=== PATIENT | male | born 1960 | race Caucasian/White ===

== ENCOUNTER 2024-06-25 15:50 | Inpatient (IN) | payer OTHER, MEDICARE, SELFPAY ==
[2024-06-25] VITALS (27 sets, daily range): BP systolic 117–182; BP diastolic 77–116; BMI 28.0
[2024-06-25 12:05] LABS: % Basophils 0.5 % (0-2); % Eosinophils 0.3 % (0-6); % Immature Granulocytes 0.3 % (0-0.5); % Lymphocytes 15.8 % (20.5-51.1); % Monocytes 9.9 % (1.7-9.3); % Neutrophils 73.2 % (42.2-75.2); Absolute Basophils 0.1 10^3/uL (0-0.2); Absolute Immature Granulocytes 0.1 10^3/uL (0-0.05); Absolute Lymphocytes 2.3 10^3/uL (1.2-3.4); Absolute Monocytes 1.4 10^3/uL (0.1-0.6); Absolute Neutrophils 10.7 10^3/uL (1.4-6.5); Hematocrit 43.6 % (39.0-52.0); Hemoglobin 15.6 g/dL (13.0-18.0); Mean Corp Hgb Conc. 35.8 g/dL (33.0-37.0); Mean Corpuscular Hgb 32.2 pg (27.0-31.0); Mean Corpuscular Volume 89.9 fL (80.0-94.0); Mean Platelet Volume 10.4 fL (7.4-10.4); Nucleated Red Blood Cells % 0 % (-); Platelet Count 220 10^3/uL (130-400); Red Blood Cell Count 4.85 10^6/uL (4.70-6.10); Red Cell Dist. Width 11.9 % (11.5-14.5); White Blood Cell Count 14.6 10^3/uL (4.8-10.8)
--- NOTE | 2024-06-25 12:09 | ED.GENMED ---
History of Present Illness
General
Chief Complaint: Cardiac Symptoms
Source: patient and spouse
Exam Limitations: none
Time Seen by Provider: 06/25/24 11:54
History of Present Illness
History of Present Illness:
63-year-old male complaining of dull mid chest pain. Started at 2 AM. Has been relatively constant since then. No pleuritic pain. At times mild radiation to the upper back. However no shearing pain. No history of same.
Past History
Past History
ED Past Medical History: Asthma, HTN and Hypercholesterolemia; Negative NIDDM
ED Past Surgical History: Tonsilectomy and Other (Rhinoplasty)
Social History
Tobacco: Smoker
Alcohol: Occasional
Personal:
Living: with family
Phy Exam
Physical Exam
Physical Exam:
GENERAL: Alert and oriented in no apparent distress
EYE: Orbits normal.
NECK: Supple
CARDIAC: Regular rate and rhythm without any obvious murmurs.
LUNGS: Clear breath sounds,normal
ABDOMEN: Soft, without focal tenderness or distention
NEUROLOGICAL: Alert and oriented , grossly non-focal
SKIN: Warm and dry, no rash or lesion, no discoloration, skin intact.
MUSCULOSKELETAL: No edema,no deformity.Good color
PSYCH: Normal and appropriate interaction.
Course
Orders/Labs/Results
Orders:
Orders
06/25/24 Lunch
NPO
Allow oral meds: Yes
Allow clear liquids: No
06/25/24 11:42
Electrocardiogram (*1) Urgent
Reason for Study: Chest Pain
EKG- Treatment ONCE
06/25/24 11:58
Complete Blood Count/With Diff Urgent
Comprehensive Metabolic Panel Urgent
PTT Urgent
Troponin I Urgent
06/25/24 12:01
Cardiac Monitoring- Treatment ONCE
IV Insert/Care/Rem.- Treatment PRN
Aspirin Chewable [Low Strength Aspirin] 324 mg PO NOW STA
Nitroglycerin 100 mg/250 ml [Nitroglycerin Premix] 100 mg in 250 ml IV NOW
Initial dose in mcg/min, then titrate:: 5
Titrate to keep:: Chest Pain Free
Titrate by mcg/min:: 5 mcg/min, may increase by 10 mcg/min if dose > 20 mcg/min
Frequency of titrations (minutes):: every 3-5 minutes
Maximum dose in mcg/min:: 200
Begin to taper infusion when:: Remained at goal for 2hrs
Taper by mcg/min:: 5 mcg/min
Frequency of taper (minutes) if patient maintains goal:: 30
Taper to off?: Yes
If infusion off & no longer maintaining goal:: Contact Provider
Nitroglycerin Sublingual [Nitrostat (Sublingual)] 0.4 mg SL [id number] PRN
CR Chest Portable - 1 View Urgent
Comment:
Reason For Exam: cp
Reason Study Needs to be Portable: Unable to Transport
Pulse Ox/cont/shift [RESP] Stat
Quantity: 1
06/25/24 12:[address] Non Medication Order As Directed
Physician Order: PTT 6 hours after initial start of Heparin infusion
06/25/24 12:12
Heparin 4,000 units IV NOW STA
Nursing to Place Non Medication Order As Directed
Physician Order: PTT 6 hours after initial start of Heparin infusion
06/25/24 12:15
Heparin 88583 Units/250 ml 25,000 units in 250 ml IV PER PROTOCOL
Weight to be used for heparin protocol in kilograms (kg):: 90.9
Protocol:: Cardiac Tx/Acute Coronary
PTT Goal Range to be used:: PTT 73 to 111 seconds
Order type:: Initial
INITIAL Infusion Dose (UNITS/KG/hr) & then follow protocol:: 12 units/kg/hr
Infusion Dose in UNITS/hr & then follow protocol (UNITS/hr):: 1,000
INFUSION RATE in mL/hr & then follow protocol (mL/hr):: 10
PTT less than or equal to 64 seconds:: Increase rate by 200 units/hr (+ 2 mL/hr)
PTT 64.1 to 72.9 seconds:: Increase rate by 100 units/hr (+ 1 mL/hr)
PTT 73 to 111 seconds:: Target Range. No change in rate.
PTT 111.1 to 130.9 seconds:: Decrease rate by 100 units/hr (- 1 mL/hr)
PTT 131 to 199.9 seconds:: HOLD for 1 hr. Then decrease rate by 200 units/hr (- 2 mL/hr)
PTT greater than or equal to 200 seconds:: HOLD for 2 hrs & Notify Provider. Then decrease by 200 units/hr (-
2 mL/hr)
Lab follow-up:: Each change, PTT q6h until 2 consecutive are therapeutic. Then PTT
daily.
06/25/24 12:55
Level of Care Change As Directed
Level of Care: Inpatient admission
Diagnosis: NSTEMI
Reason for Hospitalization: NSTEMI, IVU level of care
Expected length of stay greater than two midnights?: Yes
ELOS- Estimated Length of Stay in days: 3
I certify the patient meets the requirements for IP care: Yes
Code Status As Directed
Resuscitation Status: Full Code
Venous Foot Pumps As Directed
Location: Bilateral feet
06/25/24 12:56
Glycohemoglobin (HgbA1c) Routine
Activity As Directed
Activity Level: Bedrest
INT (Intravenous Needle Therapy) As Directed
Comment: maintain peripheral IV access
Intake/ Output As Directed
Frequency: q12h
Vital Signs As Directed
Frequency: q4h
Weight As Directed
Frequency: Daily
DX Deep Vein Thrombosis Video Routine
06/25/24 12:57
Echo 2D MMode Color/Doppler Routine
Reason for Study: chest pain
Heparin Protocol- PTT Orders As Directed
PTT per Heparin protocol: -Obtain CBC and baseline PTT - if not already collected.
-Obtain PTT 6 hours from start of infusion. Then, every 6 hours until 2 consecutive
PTT's are therapeutic. Then, PTT Daily.
-With each rate change, obtain PTT every 6 hours until 2 consecutive PTT's are
therapeutic. Then, PTT Daily.
Notify MD As Directed
Notify physician if: PTT is greater than or equal to 200.
06/25/24 13:00
Electrocardiogram (*1) Q6H
Reason for Study: Chest Pain
Comment: at admission and Q3H for total of 3, to be done with each troponin
Troponin I Q3H
Comment: at admit & Q3H for 3 total including ED draws, obtain ECG with each level
06/25/24 13:04
EKG [Electrocardiogram (*1)] Stat
Reason for Study: Chest Pain
EKG- Treatment ONCE
06/25/24 13:17
Ticagrelor [Brilinta] 90 mg .ROUTE .STK-MED ONE
06/25/24 13:18
Ticagrelor [Brilinta] 180 mg PO ONCE ONE
06/25/24 13:21
Ticagrelor [Brilinta] 90 mg .ROUTE .STK-MED ONE
06/25/24 13:49
Fentanyl Citrate/Pf [Sublimaze] 100 mcg .ROUTE .STK-MED ONE
Heparin 10,000 units .ROUTE .STK-MED ONE
Heparin 1000 Units/500 ml [Heparin] 1,000 units in 500 ml .ROUTE .STK-MED
Midazolam HCl [Versed] 2 mg .ROUTE .STK-MED ONE
Verapamil Injectable [Isoptin/Verapamil Injection] 5 mg .ROUTE .STK-MED ONE
06/25/24 13:50
Heparin Sodium,Porcine/Ns/Pf [Heparin 2000 Units/1000 ml] 2,000 unit in 1,000 ml .ROUTE .STK-MED
Lidocaine HCl/Pf [Xylocaine-Mpf 1% Vial] 50 mg .ROUTE .STK-MED ONE
Nitroglycerin [Tridil] 1,500 mcg .ROUTE .STK-MED ONE
06/25/24 16:00
Troponin I Q3H
Comment: at admit & Q3H for 3 total including ED draws, obtain ECG with each level
06/25/24 18:00
Atorvastatin [Lipitor] 80 mg PO QPM
06/25/24 19:00
Electrocardiogram (*1) Q6H
Reason for Study: Chest Pain
Comment: at admission and Q3H for total of 3, to be done with each troponin
Troponin I Q3H
Comment: at admit & Q3H for 3 total including ED draws, obtain ECG with each level
06/26/24 01:00
Electrocardiogram (*1) Q6H
Reason for Study: Chest Pain
Comment: at admission and Q3H for total of 3, to be done with each troponin
06/26/24 06:00
Cardiovascular Evaluation IN AM
06/26/24 08:00
Aspirin Chewable [Low Strength Aspirin] 81 mg PO DAILY
06/27/24 06:00
Complete Blood Count/No Diff Q2D
Comment: notify provider: Platelet count < 130,000 or decrease by 50% from baseline
06/29/24 06:00
Complete Blood Count/No Diff Q2D
Comment: notify provider: Platelet count < 130,000 or decrease by 50% from baseline
07/01/24 06:00
Complete Blood Count/No Diff Q2D
Comment: notify provider: Platelet count < 130,000 or decrease by 50% from baseline
07/03/24 06:00
Complete Blood Count/No Diff Q2D
Comment: notify provider: Platelet count < 130,000 or decrease by 50% from baseline
07/05/24 06:00
Complete Blood Count/No Diff Q2D
Comment: notify provider: Platelet count < 130,000 or decrease by 50% from baseline
07/07/24 06:00
Complete Blood Count/No Diff Q2D
Comment: notify provider: Platelet count < 130,000 or decrease by 50% from baseline
07/09/24 06:00
Complete Blood Count/No Diff Q2D
Comment: notify provider: Platelet count < 130,000 or decrease by 50% from baseline
07/11/24 06:00
Complete Blood Count/No Diff Q2D
Comment: notify provider: Platelet count < 130,000 or decrease by 50% from baseline
Abnormal Lab Results
06/25/24
11:58
WBC 14.6 H 10^3/uL
(4.8-10.8)
MCH 32.2 H pg
(27.0-31.0)
Abs Immat Gran (auto) 0.1 H 10^3/uL
(0-0.05)
Absolute Neuts (auto) 10.7 H 10^3/uL
(1.4-6.5)
Absolute Monos (auto) 1.4 H 10^3/uL
(0.1-0.6)
Lymphocytes % 15.8 L %
(20.5-51.1)
Monocytes % 9.9 H %
(1.7-9.3)
Glucose 147 H mg/dl
(70-99)
Calcium 10.3 H mg/dl
(8.4-10.2)
AST 268 H U/L
(17-59)
ALT 55 H U/L
(0-50)
Troponin I 24.700 H* ng/ml
06/25/24 11:58
06/25/24 11:58
Vital Signs
Initial and Last Documented VS:
Initial Vital Signs
Temp Pulse Resp BP Pulse Ox
98.1 F 98 20 182/116 99
06/25/24 11:39 06/25/24 11:39 06/25/24 11:39 06/25/24 11:39 06/25/24 11:39
Last Documented Vital Signs
Temp Pulse Resp BP Pulse Ox
98.1 F 87 22 137/86 93
06/25/24 11:39 06/25/24 13:45 06/25/24 13:45 06/25/24 13:40 06/25/24 13:35
*Pulse Oximetry
Patient hypoxic: no
*EKG
Interpreted by ED Provider?: Yes
Interpretation: abnormal
Comparison EKG: changes noted
Heart Rate: 83
Rate: normal
Rhythm: sinus
[place]: normal axis
Interval: normal interval
QRS Pattern: normal QRS
Ischemia: T-wave inversion (Anterior lateral. Greatest in leads V2 3 and 4)
*Critical Care Note
Total Time (30-74mins, 75-104mins- exclusive of procedures): 35
Data Reviewed
Review of Other/Old Records Reveals: Labs, Records and Testing
Update Note
Update Note:
EKG was shown to me. Patient brought back immediately. Clear ST changes and T wave inversions anterior lateral. Currently having mild discomfort although nontoxic. EKGs were sent to cardiology and invasive cardiology. Aspirin heparin nitro.
Patient was rechecked multiple times. Remained clinically stable. Still ongoing vague chest discomfort. Repeat EKG essentially unchanged discussed with cardiology and invasive cardiology. Given ongoing symptoms, troponin of 24, patient will be
taken to the Pedic[facility] Driver as a non-STEMI MO
ED Attending Note
-
Portions of this chart may have been created with voice recognition software.� Occasional wrong word or��sound alike� substitutions may have occurred due to the inherent limitations of voice recognition software.
Discharge Plan
Departure
Patient Disposition: Admit
Date of Disposition: 06/25/24
Time of Disposition: 14:08
Presentation/result/management discussed w/ accepting MD/DO: Cardiology/invasive cardi
Discharge Problem:
Acute non-STEMI MO
Prescriptions:
No Action
atorvastatin [Lipitor] 40 mg Tablet
40 mg PO DAILY
calcium carbonate [Tums] 200 mg calcium (500 mg) Tablet,Chewable
200 mg PO TIDPRN PRN (Reason: gerd)
ibuprofen [Advil] 200 mg Tablet
200 mg PO BIDPRN PRN (Reason: mild pain)
losartan 100 mg Tablet
100 mg PO DAILY
Centrum MultiGummies 80 mcg Tablet,Chewable
1 tab PO DAILY
Referrals:
Dick Wong MD [Family Provider] -
Interventions
Interventions:
*Risk Screen - Suicide Last Done: 06/25/24 11:39
*General Assessment Last Done: 06/25/24 11:39
*Neglect/Abuse Screening Last Done: 06/25/24 11:39
*ED COVID-19 Vaccine History Last Done: 06/25/24 12:24
ED- Pulmonary Assessment Last Done: 06/25/24 13:12
ED- Cardiac Assessment Last Done: 06/25/24 12:26
Discharge Date and Time
Print Language: [place] CITIZ[place]
[2024-06-25] MEDS: LOW STRENGTH ASPIRIN 324 MG PO (12:13)
[2024-06-25] MEDS: NITROGLYCERIN PREMIX 250 IV (12:16)
[2024-06-25 12:17] LABS: ALT (SGPT) 55 U/L (0-50); AST (SGOT) 268 U/L (17-59); Albumin 4.4 g/dl (3.5-5.0); Alkaline Phosphatase 78 U/L (38-126); Blood Urea Nitrogen 18 mg/dl (9-20); Calcium 10.3 mg/dl (8.4-10.2); Carbon Dioxide 27 mmol/L (22-30); Chloride 105 mmol/L (98-107); Estimated Creatinine Clearance 71 ml/min; Glucose 147 mg/dl (70-99); Potassium 3.8 mmol/L (3.5-5.1); Sodium 138 mmol/L (135-145); Total Protein 7.2 g/dl (6.3-8.2); eGFR > 60.00
[2024-06-25 12:18] LABS: APTT 28.5 Sec (23.4-35.0)
[2024-06-25] MEDS: HEPARIN 4000 UNITS IV (12:42)
[2024-06-25] MEDS: HEPARIN 25000 UNITS/250 ML IV (12:45)
[2024-06-25] MEDS: NITROSTAT (SUBLINGUAL) 0.4 MG SL ×3 (12:49→13:07)
[2024-06-25] MEDS: BRILINTA 180 MG PO (13:22)
--- NOTE | 2024-06-25 13:55 | CON.CAR ---
Consultation
Consultation Request
Date/Time Consultation Requested: Jun 25 PM
Date/Time Consultation Performed: Jun 25 pm
Requesting Provider: ER
Performing Provider: Gage Field
Reason for Consultation: chest pain
Medical History
-
Chief Complaint: Chest pain
History of Present Illness:
63-year-old male with past medical history of hypertension hyperlipidemia and chronic smoker with daily alcohol who is here for evaluation of chest pain. He tells me that initially he had minor chest discomfort a few days ago. However, early this
morning he awoke with chest tightness with radiation to his shoulders and some mild associated shortness of breath that did not go away. He was unable to fall back asleep. Because of the intensity and unable for it to go away he decided to present
to the emergency room; in the emergency room he had anterolateral T wave inversions concerning for possible ischemia and initial troponin was elevated. He received nitro x 3 with inability to relieve symptoms and after discussion with
interventional cardiology the Senior Analyst Programmer was activated.
Past Medical History
Past Medical History: HTN and Hypercholesterolemia
Past Surgical History: None
Social History
Tobacco: Smoker
Alcohol: Daily
Drug: None
Personal:
Living: With Family
Employment: Employed
Family History
Family History: Other (father AL and CABG in 60s)
Allergies / Home Medications
Allergy/AdvReac Type Severity Reaction Status Date / Time
No Known Allergies Allergy Verified 06/25/24 11:39
�Medication �Instructions �Recorded �Confirmed �Type
atorvastatin 40 mg tablet (Lipitor) 40 mg PO DAILY 06/25/24 06/25/24 History
calcium carbonate (Tums) 200 mg PO TIDPRN PRN gerd 06/25/24 06/25/24 History
ibuprofen 200 mg tablet (Advil) 200 mg PO BIDPRN PRN mild pain 06/25/24 06/25/24 History
losartan 100 mg tablet 100 mg PO DAILY 06/25/24 06/25/24 History
multivitamin with minerals-folic 1 tab PO DAILY 06/25/24 06/25/24 History
acid 80 mcg chewable tablet
Review of Systems
-
All other systems: Negative unless noted
Physical Exam
Vital Signs
Temp Pulse Resp BP Pulse Ox
98.1 F 87 21 118/89 93
06/25/24 11:39 06/25/24 13:05 06/25/24 13:05 06/25/24 13:07 06/25/24 13:12
Lab Results
06/25/24 11:58
06/25/24 11:58
Troponin I 24.700 ng/ml H* 06/25/24 11:58
Physical Exam
General: Well Developed, Well Nourished and No Apparent Distress
HEENT: Normocephalic and Anicteric
Respiratory: Clear and Non Labored Respirations
Cardiac: S1/S2 and Regular Rhythm
GI: Soft and Normal Bowel Sounds
Musculoskeletal: No Clubbing, No Cyanosis and No Edema
Skin: Warm and Dry
Neuro: AO x 3
Hematologic/Lymphatic: No Lymphadenopathy
Psych: Calm
Impression / Plan
-
63-year-old male with past medical history of hypertension hyperlipidemia and chronic smoker with daily alcohol who is here for evaluation of chest pain, found to have an NSTEMI.
NSTEMI
- aspirin and ticagrelor given
-Increase atorvastatin to 80 mg daily lipid panel pending hemoglobin A1c pending
-Echocardiogram
-Start low-dose beta-mauro carvedilol 3.125 twice daily
-Senior Analyst Programmer
Hypertension
-Continue losartan start Coreg 3.125 mg twice daily
Smoker
-Cessation starting today
Alcohol use
- will monitor for symptoms of w/drawal
Data Reviewed
-
EKG: Tracing Personally Visualized and interpreted (sr ischemic st changes )
Medical Tests (Nuc Med, Echo etc): Image Personally Visualized and interpreted
Labs: Labs Reviewed by me
[2024-06-25 14:13] LABS: ACT-LR - POC 252 Seconds (116-155)
[2024-06-25 14:24] LABS: ACT-LR - POC 115 Seconds (116-155)
[2024-06-25 14:30] LABS: ACT-LR - POC 261 Seconds (116-155)
[2024-06-25 14:43] LABS: ACT-LR - POC 276 Seconds (116-155)
--- NOTE | 2024-06-25 15:57 | ITS.CL.CATH ---
Popcorn Attendant - Catheterization
Cardiac Catheterization
Procedure Report:
CARDIAC CATHETERIZATION REPORT
Date of Procedure: 06/25/2024
Referring: Gage Field MD
Indication: Evolving non-STEMI with ongoing chest pain despite medical therapy
�
HEMODYNAMIC DATA
AO: 138/71
LV: 138/30
�
LEFT VENTRICULOGRAPHY: Severe anterolateral hypokinesis with apical akinesis to dyskinesis. The EF is 28%
�
CORONARY ANGIOGRAPHY
Dominance: Right
Left Main: Normal
LAD: The proximal and mid LAD are severely calcified. There are tandem 99% and 90% mid LAD stenoses with very sluggish ABIOLA grade II flow distal to the lesions. A large D1 has 90% proximal (not ostial) stenosis.
Circumflex: The circumflex gives rise to small OM1 and OM 2 branches. OM 3 is large with 20% proximal stenosis. There is 60-70% mid circumflex stenosis just past the takeoff of OM 3. OM 4 is a moderate-sized vessel. The circumflex extends into
the AV groove and provides collateral flow to the distal right posterolateral branch
RCA: The RCA is proximally occluded. There is [id number] collateral filling of the large second RPL, moderate-sized first RPL, and moderate-sized RPDA
Angioplasty: At the conclusion of the diagnostic study we proceeded with immediate intervention for evolving non-STEMI with very slow antegrade flow in the infarct-related artery (LAD). There was no option for medical stabilization then CABG due to
the very sluggish flow in the LAD. The aortic root was mildly enlarged and we were unable to engage the left coronary artery with EBU 3.75 , EBU 4 , and AL 2 guide catheters. With luck we were able to get an XB 4 into the left coronary artery and
it actually provided surprisingly good backup support for the duration of the procedure. A Hi-Torque floppy wire could not be passed through the 99% mid LAD stenosis and was removed. A hydrophilic whisper wire was successfully passed without much
of a fight into the distal LAD. We then placed a BMW wire into the large first diagonal branch with the plan to treat the 90% proximal stenosis in this vessel after fixing the infarct vessel. Heparin was used for anticoagulation. The patient had
been given ticagrelor 180 mg chewed in the ER as well as aspirin 324 mg. A 2.5 x 15 Euphora balloon was used to dilate both mid LAD lesions to 7 savannah. This restored ABIOLA grade III flow to the apical LAD. We then placed overlapping from distal to
proximal 3.0 x 18 and 3.0 x 12 Royer frontier BRIDGET to cover the tandem mid LAD lesions. Each stent was deployed at 15 savannah then postdilated with a 3.0 NC emerge to 17 savannah. The angiographic result was outstanding with yazdanism of ABIOLA grade III
flow to the apical LAD and no residual stenosis.
At this point we turned our attention to the 90% proximal stenosis in the large first diagonal branch of the LAD. Angioplasty with a 2.0 x 12 emerge balloon to 8 savannah was followed by placement of a 2.25 x 15 Royer frontier BRIDGET deployed at 14 savannah then
postdilated with a 2.25 NC Euphora to 17 savannah. The final angiographic result was outstanding with no residual stenosis. There were no procedural complications.
�
Closure Device: None-the procedure was performed via the right radial artery. The Hossein's test was normal prior to the procedure.
�
Radiation (mGy): 1476
DAP (cm2.Gy): 130.65
Fluoroscopy time: 20.8 minutes
�
CONCLUSIONS
1:�Evolving anterior non-STEMI of 10-12 hours duration with ongoing chest pain despite medical therapy
2:�Elevated LVEDP
3. Severe anterolateral hypokinesis with apical akinesis to dyskinesis and EF 28%
4. Triple-vessel CAD as described
5. Successful stenting of tandem 99% and 90% mid LAD lesions using overlapping 3.0 x 18 and 3.0 x 12 Royer drug-eluting stents
6. Successful stenting of 90% proximal first diagonal stenosis using 2.25 x 15 Royer drug-eluting stent
7. Recommend dual antiplatelet therapy for 12 months. We will treat with beta-mauro and LUISA inhibitor due to left ventricular dysfunction. Atorvastatin to achieve LDL less than 70 and ideally less than 55.
8. Smoking cessation absolutely mandatory if he hopes to live a normal lifespan
9. Recommend evaluation of LVEF by echo in 3 months followed by ICD if EF remains less than 35%. I am optimistic that there will be significant recovery in his anterior wall motion
�
�
Copy to: Gage Field MD
�
Perez Arteaga MD, FAC, [facility]
[2024-06-25] MEDS: NSS 1000 IV (17:46)
[2024-06-25] MEDS: KCL 20 MEQ PO (17:47)
[2024-06-25] MEDS: LIPITOR 80 MG PO (17:47)
[2024-06-25] MEDS: COREG 3.125 MG PO (19:34)
[2024-06-25] MEDS: MAALOX 30 ML PO (19:35)
--- NOTE | 2024-06-25 23:12 | PTCARENOTE ---
received patient at the change of shift. AAOx3. at this bedside. resting comfortably, denies any cp/sob. notable mild dyspnea on exertion. patient states having HAWKINS at times due to 'a dry nose'-baseline per patient. SR 70s. bp stable. radial
band removed with no issues. Right wrist ecchymotic; no hematoma noted. + radial pulse. gauze/teg applied. reviewed activity restrictions-verbalized understanding. educated patient to inform RN with any new changes overnight. ambulating to the
bathroom independently.
[2024-06-26 03:30] VITALS: BP 117/78
[2024-06-26 04:39] LABS: HDL Cholesterol 47 mg/dl; LDL Cholesterol, Calculated 96 mg/dl; Total Cholesterol 172 mg/dl (50-199); Triglyceride 147 mg/dl (10-149); Very Low Density Lipoprotein 29 mg/dl (0-30)
[2024-06-26 04:49] LABS: Blood Urea Nitrogen 15 mg/dl (9-20); Calcium 9.2 mg/dl (8.4-10.2); Carbon Dioxide 25 mmol/L (22-30); Chloride 106 mmol/L (98-107); Estimated Creatinine Clearance 71 ml/min; Glucose 101 mg/dl (70-99); Magnesium 1.4 mg/dl (1.6-2.3); Sodium 136 mmol/L (135-145); eGFR > 60.00
[2024-06-26] MEDS: MAGNESIUM SULFATE 50 IV (05:05)
--- NOTE | 2024-06-26 05:19 | PTCARENOTE ---
prolonged QT and QTc noted this morning. updated Freddy RANGEL PA. BMP and magnesium added to AM labs. k 4.0 and mag 1.4. 2 gram IV mag ordered and given-see jan.
no chest pain overnight. ambulating independently. R radial site intact.
[2024-06-26 06:00] VITALS: BMI 27.6
[2024-06-26 07:40] VITALS: BP 116/90
--- NOTE | 2024-06-26 07:55 | W.PN.CD ---
Today's Communication / Plan
-
Lisinopril 5 bid starting this AM
monitor
ECHO today
OK to shower this afternoon
Check cost of brilinta
Impression / Plan
-
63-year-old male with past medical history of hypertension hyperlipidemia and chronic smoker with daily alcohol who is here for evaluation of chest pain, found to have an NSTEMI.
NSTEMI
- Large UT with peak troponin 316 now falling
-Atorvastatin increased to 80mg. His LDL 96 on 40mg
-Echocardiogram today
-Coreg 3.125 bid and Lisinopril 5mg bid
- Check cost of brilinta
- He lives in [place]. Will need care down there
-Continue telemetry for at least 48 hrs longer given size of UT
- ECG c/w ASMI
Hypertension
-Continue losartan start Coreg 3.125 mg twice daily and have added lisinopril 5mg bid
Smoker
-Cessation starting today
Alcohol use
- will monitor for symptoms of w/drawal
-discussed need to decrease ETOH with pt and his yesterday
Physical Exam
Vital Signs/Labs
Vital Signs
Temp Pulse Resp BP Pulse Ox
98.7 F 72 18 117/78 98
06/26/24 07:36 06/26/24 04:30 06/26/24 07:36 06/26/24 03:30 06/26/24 07:36
06/25/24 06/26/24 06/27/24
06:59 06:59 06:59
Actual Weight 197 lb 8.547 oz
06/25/24 11:58
06/26/24 03:31
APTT 28.5 Sec (23.4-35.0) 06/25/24 11:58
Magnesium 1.4 mg/dl (1.6-2.3) L 06/26/24 03:31
Magnesium Cancelled 06/26/24 03:31
Triglycerides 147 mg/dl (10-149) 06/26/24 03:31
LDL Cholesterol, Calc 96 mg/dl 06/26/24 03:31
VLDL Cholesterol, Calc 29 mg/dl (0-30) 06/26/24 03:31
HDL Cholesterol 47 mg/dl 06/26/24 03:31
LAB Results
06/25/24 06/25/24 06/25/24
11:58 16:00 18:06
Troponin I 24.700 H* Cancelled 316.000 H* D
06/25/24 06/26/24
19:00 03:31
Troponin I Cancelled 73.300 H*
Physical Exam
Constitutional: No acute distress and Comfortable
EENT: Anicteric
Cardiovascular: Rhythm & rate is regular, S1S2 is normal and Murmur/rub/gallop absent
Respiratory: Respiratory effort normal, Lungs clear to auscul., Wheeze Absent and Crackles Absent
GI: Soft and Non tender
Neuro/Psych: AO x 3 and Motor deficits absent
Data Reviewed
-
Date of Service: June 26, 2024
[2024-06-26] MEDS: COREG 3.125 MG PO ×2 (08:04→20:35)
[2024-06-26] MEDS: ZESTRIL 5 MG PO ×2 (08:04→20:36)
[2024-06-26] MEDS: LOW STRENGTH ASPIRIN 81 MG PO (08:04)
[2024-06-26] MEDS: BRILINTA 90 MG PO ×2 (08:05→20:36)
[2024-06-26] MEDS: PROTONIX 40 MG PO (08:05)
[2024-06-26 09:01] LABS: Glycohemoglobin (HgbA1c) 5.4 % (4.0-5.6)
[2024-06-26 12:05] VITALS: BP 122/75
--- NOTE | 2024-06-26 13:02 | CM ---
Chart reviewed. Patient is here visiting his son, he lives with his in [place]. Patient is independent of ADLS, lives with his in a [address], 0 SCOTT, 0 DME. Plan is for the patient to return to his son's home and then return to his home in
[place] next weekend. CM to follow
--- NOTE | 2024-06-26 13:04 | CM ---
Pricing on medications through the patient's [facility], Brilinta is covered at $273.43 until the patient meets the deductible of $3400 in medications and hospitalization. After the patient will pay 20% of cost. Patient qualifies for the $5 copay
card. I did place that in the patient's red discharge folder.
Entresto needs a PA, it's a Tier 4 medication. PA # [phone]. I did place a free 30 day coupon and $10 copay card in the patient's discharge folder.
Farxiga needs a PA. Preferred medication is Jardiance and that is a $0 copay.
I reviewed with the patient.
--- NOTE | 2024-06-26 14:36 | PTCARENOTE ---
Patient with no complaints of pain or shortness of breath. NSR on telemetry, VSS, call nichols in reach
[2024-06-26 15:39] VITALS: BP 121/82
[2024-06-26] MEDS: LOVENOX 40 MG SC (17:38)
[2024-06-26] MEDS: LIPITOR 80 MG PO (17:38)
[2024-06-26 18:54] LABS: Hepatitis C Antibody Negative (Negative)
[2024-06-26 19:38] VITALS: BP 121/79
[2024-06-26 22:54] VITALS: BP 113/69
[2024-06-27] VITALS (7 sets, daily range): BP systolic 99–135; BP diastolic 62–88; BMI 27.8
--- NOTE | 2024-06-27 04:32 | PTCARENOTE ---
Pt denies chest pain or SOB. VSS. SB with lowest HR 47 on monitor.
[2024-06-27] MEDS: ZESTRIL 5 MG PO ×2 (08:03→19:26)
[2024-06-27] MEDS: BRILINTA 90 MG PO ×2 (08:03→19:26)
[2024-06-27] MEDS: LOW STRENGTH ASPIRIN 81 MG PO (08:03)
[2024-06-27] MEDS: PROTONIX 40 MG PO (08:03)
[2024-06-27] MEDS: COREG 3.125 MG PO ×2 (08:03→19:27)
[2024-06-27] MEDS: JARDIANCE 10 MG PO (10:07)
--- NOTE | 2024-06-27 11:08 | CM ---
Chart reviewed. Patient is independent of ADLS, lives with his in a [address], 0 SC[address], 0 DME in [place]. Patient is visiting his son and family. Plan is for the patient to go to his son's house when medically stable for discharge and then return
to [place]. CM to follow
[2024-06-27] MEDS: LIPITOR 80 MG PO (17:38)
[2024-06-27] MEDS: LOVENOX 40 MG SC (17:38)
--- NOTE | 2024-06-27 18:30 | W.PN.CD ---
Today's Communication / Plan
-
Increase activity
Continue current medical regimen
If he remains stable on telemetry home tomorrow
Impression / Plan
-
63-year-old male with past medical history of hypertension hyperlipidemia and chronic smoker with daily alcohol who is here for evaluation of chest pain, found to have an NSTEMI.
NSTEMI
- Large SC with peak troponin 316
-Telemetry has not shown any ventricular tachycardia and he remains clinically stable with no CHF
-Atorvastatin increased to 80mg. His LDL 96 on 40mg
-Echocardiogram 06/26 showed EF 30% with extensive anterior wall motion abnormalities consistent with large anterior infarction
-Coreg 3.125 bid and Lisinopril 5mg bid are being well-tolerated
-Continue DAPT x 12 months
- He lives in [place]. Will need care down there
-If he remains stable he should be good for discharge tomorrow
- ECG c/w ASMI
Hypertension
-Continue losartan start Coreg 3.125 mg twice daily and have added lisinopril 5mg bid
Smoker
-Cessation mandatory
Alcohol use
-No symptoms of w/drawal
-discussed need to decrease ETOH with pt and his yesterday
Patient has been told he will need cardiac care when he returns to [place] and will need an echocardiogram in 3 months to determine whether an ICD is needed. I have explained the situation to him carefully
Physical Exam
Vital Signs/Labs
Vital Signs
Temp Pulse Resp BP Pulse Ox
97.7 F 78 16 122/88 98
06/27/24 14:30 06/27/24 08:00 06/27/24 14:30 06/27/24 07:44 06/27/24 14:30
06/26/24 06/27/24 06/28/24
06:59 06:59 06:59
Actual Weight 197 lb 8.547 oz 199 lb 1.239 oz
06/25/24 11:58
06/26/24 03:31
APTT 28.5 Sec (23.4-35.0) 06/25/24 11:58
Magnesium 1.4 mg/dl (1.6-2.3) L 06/26/24 03:31
Magnesium Cancelled 06/26/24 03:31
Triglycerides 147 mg/dl (10-149) 06/26/24 03:31
LDL Cholesterol, Calc 96 mg/dl 06/26/24 03:31
VLDL Cholesterol, Calc 29 mg/dl (0-30) 06/26/24 03:31
HDL Cholesterol 47 mg/dl 06/26/24 03:31
LAB Results
06/25/24 06/25/24 06/25/24
11:58 16:00 18:06
Troponin I 24.700 H* Cancelled 316.000 H* D
06/25/24 06/26/24
19:00 03:31
Troponin I Cancelled 73.300 H*
Physical Exam
Constitutional: No acute distress and Comfortable
EENT: Anicteric
Cardiovascular: Rhythm & rate is regular and Murmur/rub/gallop absent
Respiratory: Respiratory effort normal, Lungs clear to auscul., Wheeze Absent and Rhonchi Absent
GI: Soft
Neuro/Psych: AO x 3 and Motor deficits absent
Data Reviewed
-
Date of Service: June 27, 2024
[2024-06-28 05:05] VITALS: BP 113/74
[2024-06-28 05:07] VITALS: BMI 27.4
[2024-06-28 07:19] VITALS: BP 129/77
[2024-06-28] MEDS: PROTONIX 40 MG PO (08:11)
[2024-06-28] MEDS: ZESTRIL 5 MG PO (08:11)
[2024-06-28] MEDS: JARDIANCE 10 MG PO (08:11)
[2024-06-28] MEDS: LOW STRENGTH ASPIRIN 81 MG PO (08:11)
[2024-06-28] MEDS: BRILINTA 90 MG PO (08:11)
[2024-06-28] MEDS: COREG 3.125 MG PO (08:11)
--- NOTE | 2024-06-28 09:33 | W.PN.CARDCBS ---
Addendum entered and electronically signed by AMARA Villarreal 06/28/24 16:31:
new Acute ischemic HFrEF and was initiated on GDMT, can consider adding Aldactone as an outpt
Addendum entered and electronically signed by Jonathan Blank MD 06/28/24 09:54:
63 yo male admitted with NSTEMI, ICM EF 30%. s/p PCI to LAD and D1 06/25. No chest pain. Exam with RRR, no murmurs, no edema. Tele: SB 50s, no arrhythmia. He will be discharged on current medical regimen including DAPT, coreg, lisinopril,
atorvastatin, jardiance. He will follow up with cardiology in [place], including 3 month follow up echo for ICD evaluation.
Original Note:
Today's Communication / Plan
-
stable for d/c home today
Impression / Plan
-
63-year-old male with past medical history of hypertension hyperlipidemia and chronic smoker with daily alcohol who is here for evaluation of chest pain, found to have an NSTEMI.
NSTEMI
- Large [place] with peak troponin 316
-Telemetry has not shown any ventricular tachycardia and he remains clinically stable with no CHF
-Atorvastatin increased to 80mg. His LDL 96 on 40mg
-Echocardiogram 06/26 showed EF 30% with extensive anterior wall motion abnormalities consistent with large anterior infarction
-Coreg 3.125 bid and Lisinopril 5mg bid are being well-tolerated
-Continue DAPT x 12 months
- He lives in [place]. Will need care down there
-Cardiac rehab c/s, will set up in [place] after cardiology f/u apt
- stable for d/c home today
New HFrEF - EF 30%, continue GDMT, added Jardiance
Hypertension
-Continue losartan start Coreg 3.125 mg twice daily and have added lisinopril 5mg bid
Smoker
-Cessation mandatory
Alcohol use
-No symptoms of w/drawal
-discussed need to decrease ETOH with pt and his yesterday
Patient has been told he will need cardiac care when he returns to [place] and will need an echocardiogram in 3 months to determine whether an ICD is needed.
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
Subjective
Date of Service: June 28, 2024
no cp,sob
Objective
Labs:
06/25/24 11:58
06/26/24 03:31
Labs
Hgb 15.6 g/dL (13.0-18.0) 06/25/24 11:58
Hct 43.6 % (39.0-52.0) 06/25/24 11:58
Plt Count 220 10^3/uL (130-400) 06/25/24 11:58
APTT 28.5 Sec (23.4-35.0) 06/25/24 11:58
Sodium 136 mmol/L (135-145) 06/26/24 03:31
Sodium Cancelled 06/26/24 03:31
Potassium 4.0 mmol/L (3.5-5.1) 06/26/24 03:31
Potassium Cancelled 06/26/24 03:31
BUN 15 mg/dl (9-20) 06/26/24 03:31
BUN Cancelled 06/26/24 03:31
Creatinine 1.1 mg/dL (0.7-1.3) 06/26/24 03:31
Creatinine Cancelled 06/26/24 03:31
Glucose 101 mg/dl (70-99) H 06/26/24 03:31
Glucose Cancelled 06/26/24 03:31
Troponins
06/25/24 06/25/24 06/25/24
11:58 16:00 18:06
Troponin I 24.700 H* Cancelled 316.000 H* D
06/25/24 06/26/24
19:00 03:31
Troponin I Cancelled 73.300 H*
Vital Signs and I&O:
Vital Signs
Temp Pulse Resp BP Pulse Ox
98.8 F 70 20 129/77 98
06/28/24 07:16 06/28/24 07:19 06/28/24 07:16 06/28/24 07:19 06/28/24 08:07
Vital Signs
Temp Pulse Resp BP Pulse Ox
98.8 F 70 20 129/77 98
06/28/24 07:16 06/28/24 07:19 06/28/24 07:16 06/28/24 07:19 06/28/24 08:07
Intake & Output
06/26/24 06/27/24 06/28/24 06/29/24
06:59 06:59 06:59 06:59
Intake Total 825 / 825 780 / 780
Output Total 350 / 350
Balance 475 / 475 780 / 780
Physical Exam
Physical Exam
NAD< AOX3
S1, S2, RRR
CTAB, non labored
SNTND bsx4
R Rad site c/d/i good pulse
--- NOTE | 2024-06-28 10:24 | W.DS.TRANS ---
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
-
Discharge Instructions:
Discharge Diagnosis/Procedures NSTEMI, Angioplasty with stent to LAD and
Diagonal arteries x 2 (06/25)
HFrEF
HTN
HLD
Diet 2 Gram Sodium,Restrict fluids to 48 oz,Low
Cholesterol
Activity No strenuous activity
Additional Activity for 4 weeks
Driving Restrictions No driving for 24 hours
Bathing Restrictions OK to Shower
Others Tests Echocardiogram in 3 months. This will be
ordered by your toll patrolman in [facility]
Other Services Cardiac Rehab
Specialty Instructions Weigh Daily
Instructions:
Stand-Alone Forms: DC Instructions- Cath/EP Lab
Changes to Home Medications: Yes
Discharge Medications:
DC Medications w/original date entered in [employer]
calcium carbonate (Tums) 200 mg PO TIDPRN PRN gerd 06/25/24
multivitamin with minerals-folic acid 80 mcg chewable tablet 1 tab PO DAILY Supplement 06/25/24
acetaminophen 325 mg tablet 650 mg (2 x 325 mg) PO Q4HPRN PRN mild pain #1 tab 06/26/24
aspirin 81 mg chewable tablet 81 mg PO DAILY #30 tabs 06/26/24
atorvastatin 80 mg tablet 80 mg PO QPM #30 tabs 06/26/24
ticagrelor 90 mg tablet (Brilinta) 90 mg PO BID #60 tabs 06/26/24
carvedilol 3.125 mg tablet 3.125 mg PO BID #180 tabs 06/28/24
empagliflozin 10 mg tablet (Jardiance) 10 mg PO DAILY #90 tabs 06/28/24
lisinopril 5 mg tablet 5 mg PO BID #180 tabs 06/28/24
nitroglycerin 0.4 mg sublingual tablet 0.4 mg sublingual [id number] PRN chest pain #25 tabs 06/28/24
Home Medication Changes
stop losartan, increase atorvastatin 40 to 80mg, new to nitro, lisinopril, carvedilol, ASA, Brilinta, Jardiance
Pending Results: No
--- NOTE | 2024-06-28 11:43 | PTCARENOTE ---
Pt chinmay by Kimberli Guzman NP and . Telemetry and IV device removed. Discharge instructions reviewed with pt and his regarding CHF guidelines, wound care, medications and their possible side effects, activity guidelines, reporting cares and
concerns and follow up appt's. Very good understanding verbalized. Pt has reports of all procedures here and will find a Marketer in [place]. Pt escorted out via wheelchair and discharged to home.
[2024-06-28 12:04] LABS: ACT-LR - POC > 397 Seconds (116-155)
[2024-06-28 12:04] LABS: ACT-LR - POC > 397 Seconds (116-155)
--- NOTE | 2024-06-28 15:57 | PN.CDI ---
CDI
- -
CDI:
Physician Documentation Request
Admit Date: 06/25/24 15:50
Dear Bita MALONEY,
Clinical Indicators:
Patient admitted with NSTEMI; s/p PCI to LAD and D1 06/25.
06/25 Cath Report, 'Elevated LVEDP'
06/27 PN, 'New HFrEF - EF 30%, continue GDMT, added Jardiance'
Please provide further specificity regarding th acuity of HFrEF you are evaluating, treating or monitoring.
Acute HFrEF
Other,please specify
Unable to determine
Use of terms such as suspected, likely, concern for, or probable (associated with a specific diagnosis that is being evaluated, monitored, or treated as if it exists) are acceptable and can be coded in the inpatient setting, when documented at the
time of discharge.
Thank you,
Selene Grant RN BSN
CDI Specialist
available via tiger text
Please use your independent medical judgment in providing your response.
== END 2024-06-28 11:35 | disposition home or self-care (01) | DRG 321 ==
LOC: IVU 15:50
PROVIDERS: Internal Medicine Cardiovascular Disease; ADMITTING PHYSICIAN Internal Medicine Cardiovascular Disease; EMERGENCY PHYSICIAN Emergency Medicine; FAMILY PHYSICIAN Family Medicine
PROC: 027136Z Dilation of Coronary Artery, Two Arteries with Three Drug-eluting Intraluminal Devices, Percutaneous Approach (ICD-10-PCS; 2024-06-25)
PROC: B215YZZ Fluoroscopy of Left Heart using Other Contrast (ICD-10-PCS; 2024-06-25)
PROC: B211YZZ Fluoroscopy of Multiple Coronary Arteries using Other Contrast (ICD-10-PCS; 2024-06-25)
PROC: 4A023N7 Measurement of Cardiac Sampling and Pressure, Left Heart, Percutaneous Approach (ICD-10-PCS; 2024-06-25)
DX: I21.4 Non-ST elevation (NSTEMI) myocardial infarction (principal); I50.21 Acute systolic (congestive) heart failure; I11.0 Hypertensive heart disease with heart failure; E78.00 Pure hypercholesterolemia, unspecified; F17.200 Nicotine dependence, unspecified, uncomplicated; I25.10 Atherosclerotic heart disease of native coronary artery without angina pectoris; K21.9 Gastro-esophageal reflux disease without esophagitis; J45.909 Unspecified asthma, uncomplicated; Z82.49 Family history of ischemic heart disease and other diseases of the circulatory system; Z79.899 Other long term (current) drug therapy
CPT/HCPCS: 80048; 80053; 80061; 83036; 83735; 84484; 85025; 85347; 85730; 86803; 93005; 93306; 93458; 96365; 96366; 96367; 99291; C1725; C1769; C1874; C1887; C1894; C9600; C9601; Q9967